=== PATIENT | female | born 1960 | race Caucasian/White ===

== ENCOUNTER 2020-08-19 12:14 | Emergency (ER) | payer BC, MEDICAID ==
[~2020-08-19] VITALS: Ht 170.2 cm; Wt 65.9 kg
[~2020-08-19 12:14] MED LIST: LEVO150T8 PO; MECL-226 PO; MULT-25 PO; THIA50TA10 PO
[2020-08-19 13:26] LABS: BASOPHILS # (AUTO) 0.1 X10'3 (0-0.2); BASOPHILS % (AUTO) 1.1 % (0-1); EOSINOPHILS # (AUTO) 0.3 X10'3 (0-0.9); HEMOGLOBIN 14.1 g/dl (12.0-16.0); LYMPHOCYTES # (AUTO) 1.8 X10'3 (1.1-4.8); MEAN CORPUSCULAR HEMOGLOBIN 32.9 PG (27.0-31.0); MEAN CORPUSCULAR HGB CONC 32.8 g/dL (33.0-36.5); MEAN CORPUSCULAR VOLUME 100.4 FL (78-98); MONOCYTES # (AUTO) 1.1 X10'3 (0-0.9); MONOCYTES % (AUTO) 8.3 % (2-12); NEUTROPHILS # (AUTO) 9.6 X10'3 (1.8-7.7); NEUTROPHILS % (AUTO) 74.6 % (42-75); PLATELET COUNT 429 X10'3 (140-440); RED BLOOD COUNT 4.28 X10'6 (4.20-5.60); RED CELL DISTRIBUTION WIDTH 13.6 % (11.5-14.5); WHITE BLOOD COUNT 12.9 X10'3 (4.5-11.0)
[2020-08-19 13:37] LABS: ANION GAP 10 (8-16); BLOOD UREA NITROGEN 24 MG/DL (7-18); BUN/CREATININE RATIO 17.5 (6.6-38.0); CHLORIDE 107 MMOL/L (99-107); CREATININE 1.37 MG/DL (0.40-0.90); GLUCOSE 122 MG/DL (70-104); POTASSIUM 4.5 MMOL/L (3.5-5.1); SODIUM 140 MMOL/L (135-145); TOTAL CARBON DIOXIDE 23.3 MMOL/L (24-32)
[2020-08-19 13:38] LABS: ALANINE AMINOTRANSFERASE 21 U/L (12-78); ALBUMIN 4.3 G/DL (3.4-5.0); ALKALINE PHOSPHATASE 193 IU/L (46-116); ASPARTATE AMINO TRANSFERASE 16 U/L (10-37); BILIRUBIN,TOTAL 0.6 MG/DL (0.1-1.0); CALCIUM 10.3 MG/DL (8.5-10.1); TOTAL PROTEIN 8.4 G/DL (6.4-8.2); eGFR 39 ML/MIN
[2020-08-19 13:48] LABS: ETHANOL < 0.010 GM/DL (0.0-0.010)
[2020-08-19 14:48] LABS: CLARITY,URINE CLEAR (Clear); GLUCOSE, URINE NEGATIVE (Neg); KETONES,URINE TRACE mg/dl (Neg); LEUKOCYTE ESTERASE ,URINE NEGATIVE (Neg); NITRITES, URINE NEGATIVE (Neg); OCCULT BLOOD,URINE TRACE-INTACT (Neg); PROTEIN,URINE TRACE mg/dl (Neg)
[2020-08-19 14:49] LABS: COLOR,URINE DARK YELLOW (Yellow); UA COLLECTION TYPE CLN CATCH MIDSTREAM; URINE HCG NEGATIVE (NEG)
[2020-08-19 14:55] LABS: URINE AMPHETAMINE SCREEN NEGATIVE (Neg); URINE BARBITUATE SCREEN NEGATIVE (Neg); URINE BENZODIAZEPINES SCREEN NEGATIVE (Neg); URINE CANNABINOID SCREEN NEGATIVE (Neg); URINE COCAINE SCREEN NEGATIVE (Neg); URINE METHADONE SCREEN NEGATIVE (Neg); URINE OPIATE SCREEN NEGATIVE (Neg); URINE PHENCYCLIDINE SCREEN NEGATIVE (Neg)
[2020-08-19 15:02] LABS: RBC,URINE 0-2 /HPF (0-2); WBC,URINE 0-4 /HPF (0-4)
[2020-08-19 15:03] LABS: BACTERIA,URINE FEW /HPF (Neg); MUCUS STRANDS MANY /LPF (Neg); SQUAMOUS EPITHELIAL CELL,UR MODERATE /LPF (FEW); TRANSITIONAL EPI CELLS,URINE FEW /HPF
--- NOTE | 2020-08-19 15:09 | NUR ---
Pt in green scrubs, sitting in room, rocking back and forth
[2020-08-19] MEDS ORDERED: OLANZapine 5mg rapidly disint. tablet PO ONE (15:50)
--- NOTE | 2020-08-19 16:00 | NUR ---
Pt laughing inappropriately, wanting to smoke. notified, will give zyprexa. Pt cooperative at this time, given snacks.
--- NOTE | 2020-08-19 16:50 | NUR ---
PTS FAMILY MOM: ESAU WHITLOCK [phone] NEICE: ERASTO JORDAN [phone]
--- NOTE | 2020-08-19 18:09 | NUR ---
RR EVEN AND UNLABORED, LYING DOWN IN BED
--- NOTE | 2020-08-19 19:27 | NUR ---
Pt resting comfortably in bed, has been up to BSC, had snacks
--- NOTE | 2020-08-20 10:02 | NUR ---
Saba Meier, pt [facility] called [phone] to get update on pt, she will call back later
--- NOTE | 2020-08-20 10:47 | NUR ---
Pt mother called [phone]
--- NOTE | 2020-08-20 12:07 | NUR ---
Pt daughter called [phone]
--- NOTE | 2020-08-20 13:34 | NUR ---
Pt hallie Graves called from [phone]
--- NOTE | 2020-08-20 14:51 | NUR ---
Pt on phone with mom Yang [phone]
[2020-08-20] MEDS ORDERED: LITH300C PO (14:56)
[2020-08-20] MEDS ORDERED: QUET25TA34 PO (14:56)
[2020-08-20] MEDS ORDERED: DOXE25CA3 PO (14:56)
[2020-08-20] MEDS ORDERED: CITA20TA26 PO (14:56)
[2020-08-20] MEDS ORDERED: doxepin 25mg capsule PO PRN (15:20)
--- NOTE | 2020-08-20 16:14 | NUR ---
Break RN: pt walking in [place] with tech, no distress
--- NOTE | 2020-08-20 16:54 | NUR ---
Pt laughing and smiling inappropriately. She is very pleasant and psychotic.
--- NOTE | 2020-08-20 17:50 | NUR ---
Pt offered snacks and declined
[2020-08-20 18:18] VITALS: BP_DIAS 73
[2020-08-20] MEDS: QUEtiapine 25mg tablet PO SCH (20:24)
[2020-08-20] MEDS: lithium carbonate 150mg capsule PO SCH (20:34)
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
[2020-08-20] MEDS ORDERED: erythromycin ophthalmic ointment 1gm tube LEFTEYE ONE (22:30)
--- NOTE | 2020-08-20 23:01 | NUR ---
PLACED ERYTHROMYCIN IN LEFT EYE, EYE PATCH PLACED PER PT REQ, PER HER AUNT THAT IS WHAT SHE NORMALLY DOES AT HOME.
--- NOTE | 2020-08-21 00:03 | NUR ---
Assumed care of pt and got report from PRICE Partida. Pt is laying in bed and appears to be resting, not quite asleep. No obvious signs of distress at this time.
--- NOTE | 2020-08-21 01:00 | NUR ---
Pt appears to be asleep. No signs of distress at this time. Will continue to reasses.
--- NOTE | 2020-08-21 02:14 | NUR ---
Pt woke up and had some water, talking about mice crawling across the floor and smelling the food she has in her cabinets. Pt now laying back down, appears happy, has no complaints and covered herself up with blankets.
--- NOTE | 2020-08-21 03:48 | NUR ---
Pt in bed, resting looks peaceful, even and unlabored respirations.
--- NOTE | 2020-08-21 05:13 | NUR ---
Pt woke up and attempted to walk down the hallway. Assisted pt back to bed until help can properly assist her for safety reasons.
[2020-08-21 05:38] VITALS: BP_SYST 147
--- NOTE | 2020-08-21 06:30 | NUR ---
Patient brought over from the main. Patient is awake and talkative. No distress observered. Continue to monitor.
[2020-08-21] MEDS ORDERED: levoTHYROXINE 75mcg tablet PO SCH (08:00)
[2020-08-21] MEDS ORDERED: citalopram 20mg tablet PO SCH (08:00)
[2020-08-21] MEDS: QUEtiapine 25mg tablet PO SCH (09:35)
[2020-08-21] MEDS: lithium carbonate 150mg capsule PO SCH (09:35)
--- NOTE | 2020-08-21 09:55 | NUR ---
Patient ambulatory to BR with walker. Steady gait. Continue to monitor.
--- NOTE | 2020-08-21 09:56 | NUR ---
Patient got in the wrong bed. Patient is pleasantly confused. Patient directed to her bed next door. continue to monitor.
[2020-08-21] MEDS ORDERED: MECL-226 PO (12:38)
[2020-08-21] MEDS ORDERED: [UNRECOGNIZED DRUG - CODE] LEFTEYE (12:38)
== END 2020-08-21 11:23 | disposition home or self-care (01) ==
LOC: ER 12:14
DX: H54.40 Blindness, one eye, unspecified eye (principal); Z20.822 Contact with and (suspected) exposure to COVID-19; F31.9 Bipolar disorder, unspecified; Z79.899 Other long term (current) drug therapy
CPT/HCPCS: 36415; 80053; 80305; 80320; 81001; 81025; 84443; 85025; 87426; 99285

== ENCOUNTER 2020-09-02 20:28 | Emergency (ER) | payer BC, MEDICAID ==
[~2020-09-02] VITALS: Ht 170.2 cm; Wt 63.3 kg
[~2020-09-02 20:28] MED LIST changes: +ATI1T PO; +CITA20TA26 PO; +DOXE25CA3 PO; +LIDO700A47 TP; -MULT-25 PO; +NICO-630 TD; +NICO-668 BC; +QUET200T30 PO; +QUET25TA34 PO; +QUET50TA22 PO; -THIA50TA10 PO; +[UNRECOGNIZED DRUG - CODE] LEFTEYE
[2020-09-02] MEDS ORDERED: HYDROcodone/acetaminophen 10/325mg tab PO ONE (20:45)
[2020-09-02] MEDS ORDERED: ketorolac trometh. 30mg/ml inj. IM ONE (21:30)
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
--- NOTE | 2020-09-02 23:32 | NUR ---
Report from PRICE Partida states pt has possible brain bleed. Pt to have a repeat CT to rule out bleed.
--- NOTE | 2020-09-03 01:10 | NUR ---
relieving RN for break, pt is resting quietly, eating ice chips lidia well, no n/v
[2020-09-03 01:11] VITALS: BP 120/101
--- NOTE | 2020-09-03 01:45 | NUR ---
life science technician working to arrange transportation home for patient via taxi. Patient states she has no one to come pick her up.
== END 2020-09-03 02:45 | disposition home or self-care (01) ==
LOC: ER 20:29
DX: S30.0XXA Contusion of lower back and pelvis, initial encounter (principal); F31.9 Bipolar disorder, unspecified; M19.90 Unspecified osteoarthritis, unspecified site; F17.200 Nicotine dependence, unspecified, uncomplicated; Z79.899 Other long term (current) drug therapy; W18.39XA Other fall on same level, initial encounter; Y93.89 Activity, other specified; Y92.89 Other specified places as the place of occurrence of the external cause; Y99.8 Other external cause status
CPT/HCPCS: 70450; 72100; 72170; 96372; 99285; J1885